=== PATIENT | male | born 1985 | race Caucasian/White ===

== ENCOUNTER 2019-02-23 07:27 | Emergency (ER) | payer MEDICAID ==
[~2019-02-23] VITALS: Ht 188 cm; Wt 110.0 kg
[2019-02-23 07:29] VITALS: BP 155/101
[2019-02-23] MEDS ORDERED: HYDROcodone/APAP 5/325 TABLET PO ONE (08:00)
--- NOTE | 2019-02-23 08:05 | NUR ---
xray at bedside
[2019-02-23] MEDS ORDERED: HYDROcodone/APAP 5/325 TABLET ONE (08:30)
--- NOTE | 2019-02-23 08:37 | NUR ---
medicated per [facility] EMT at bedside placing splint
--- NOTE | 2019-02-23 08:52 | NUR ---
medical technical writer comfortable discharging patient despite recent narcotic admin as patient not naive to narcotics and is being driven home by friend Reviewed care of splint/ when to f/u and what neccesitates eval of wrist (cms compromise)
== END 2019-02-23 08:52 | disposition home or self-care (01) ==
LOC: ED 08:40
DX: M25.531 Pain in right wrist (principal); F17.210 Nicotine dependence, cigarettes, uncomplicated; W11.XXXA Fall on and from ladder, initial encounter; Y93.89 Activity, other specified; Y92.009 Unspecified place in unspecified non-institutional (private) residence as the place of occurrence of the external cause; Y99.8 Other external cause status
CPT/HCPCS: 29125; 99283